=== PATIENT | female | born 1950 | race African-American/Black ===

== ENCOUNTER 2023-07-15 21:48 | Emergency (ER) | payer OTHER ==
[~2023-07-15] VITALS: Ht 162.6 cm; Wt 61.2 kg
[2023-07-15] MEDS ORDERED: COZAAR25 MG PO (22:02)
[2023-07-15] MEDS ORDERED: KETOROLAC TROMETHAMINE 30 MG VIAL IM STA (22:16)
== END 2023-07-15 23:13 | disposition home or self-care (01) ==
LOC: ER 21:49
DX: R68.84 Jaw pain (principal); I10 Essential (primary) hypertension
CPT/HCPCS: 70110; 96372; 99283; J1885